=== PATIENT | male | born 1955 | race American Indian/Alaskan Native ===

== ENCOUNTER 2018-06-28 18:38 | Emergency (ER) | payer MEDICARE ==
[2018-06-28] MEDS ORDERED: CATAPRES PO ONE (18:47)
--- NOTE | 2018-06-28 18:49 | Emergency Department Report ---
Blank Doc - Documentation Documentation: This is a 63-year-old male that presents with chest pain with shortness of prema athe. This initial assessment/diagnostic orders/clinical plan/treatment(s) is/are subject to change based on patient's health status, clinical progression and re- assessment by fellow clinical providers in the ED. Further treatment and workup at subsequent clinical providers discretion. Patient/guardians urged not to elope from the ED as their condition may be serious if not clinically assessed and managed. Initial orders include: 1- Patient sent to MAIN ED for further evaluation and treatment 2- EKG 3- Labs 4- CXR 5- Catapress
[2018-06-28 19:35] LABS: Basophils # (Auto) 0.1 K/mm3 (0.0-0.1); Basophils % (Auto) 1.1 % (0.0-1.8); Eosinophils # (Auto) 0.4 K/mm3 (0.0-0.4); Eosinophils % (Auto) 4.4 % (0.0-4.3); Hematocrit 44.3 % (35.5-45.6); Hemoglobin 15.1 gm/dl (11.8-15.2); Lymphocytes # (Auto) 1.5 K/mm3 (1.2-5.4); Lymphocytes % (Auto) 18.9 % (13.4-35.0); Mean Corpuscular HGB Conc 34 % (32-34); Mean Corpuscular Volume 88 fl (84-94); Monocytes # (Auto) 0.8 K/mm3 (0.0-0.8); Monocytes % (Auto) 9.7 % (0.0-7.3); Platelet Count 313 K/mm3 (140-440); Red Blood Count 5.01 M/mm3 (3.65-5.03); Red Cell Distribution Width 15.2 % (13.2-15.2)
[2018-06-28 19:50] LABS: INR 0.95 (0.87-1.13)
[2018-06-28 19:51] LABS: Partial Thromboplastin Time 37.8 Sec. (24.2-36.6)
[2018-06-28 19:57] LABS: BUN/Creatinine Ratio 11; Blood Urea Nitrogen 13 mg/dL (9-20); Calcium 8.6 mg/dL (8.4-10.2); Hemolysis Index 9
[2018-06-28] MEDS ORDERED: TESSALON PERLES PO ONE (20:18)
[2018-06-28] MEDS ORDERED: DUONEB *Not for PRN Use IH ONE (20:18)
[2018-06-28] MEDS ORDERED: DELTASONE PO ONE (20:18)
[2018-06-28] MEDS ORDERED: ZITHROMAX PO ONE (20:18)
--- NOTE | 2018-06-28 21:07 | Emergency Department Report ---
- General Chief Complaint: Dyspnea/Respdistress Stated Complaint: SOB Time Seen by Provider: 06/28/18 18:45 Source: patient Mode of arrival: Ambulatory Limitations: No Limitations - History of Present Illness Initial Comments: 63-year-old male with a past medical history reflux presents to Hospital complaining of cough and URI symptoms 1 week. Cough is nonproductive. Mild subjective fever reported. Positive shortness of breath and intermittent wheezing reported. Patient denies history of asthma or COPD and stopped smoking 2 months ago. Presents with extremely elevated blood pressure but denies a personal history of hypertension. He has not seen a primary care doctor in many years. He denies nausea, vomiting, diaphoresis, calf tenderness, recent travel, edema, history of PE/DVT. He complains of pain to this in his chest with coughing episodes. - Related Data Previous Rx's Medication Instructions Recorded Last Taken Type Albuterol Sulfate [Ventolin HFA] 2 puff IH Q4H PRN #1 hfa.aer.ad 06/28/18 Unknown Rx Amlodipine Besylate [Norvasc] 10 mg PO DAILY #30 tablet 06/28/18 Unknown Rx Azithromycin [Zithromax TAB] 250 mg PO QDAY #4 tablet 06/28/18 Unknown Rx Benzonatate [Tessalon Perles] 100 mg PO Q8HR PRN #20 capsule 06/28/18 Unknown Rx Ibuprofen [Motrin] 800 mg PO Q8HR PRN #30 tablet 06/28/18 Unknown Rx Inhaler, Assist Devices [Space 1 each MC PRN #1 spacer 06/28/18 Unknown Rx Chamber Plus] Omeprazole 40 mg PO DAILY #30 capsule. 06/28/18 Unknown Rx traMADol [Ultram 50 MG tab] 50 mg PO Q6HR PRN #20 tablet 06/28/18 Unknown Rx Allergies Allergy/AdvReac Type Severity Reaction Status Date / Time No Known Allergies Allergy Unverified 06/28/18 18:39 ED Review of Systems ROS: Stated complaint: SOB Other details as noted in HPI Comment: All other systems reviewed and negative ED Past Medical Hx - Past Medical History Previous Medical History?: Yes Hx GERD: Yes - Social History Smoking Status: Unknown if ever smoked Substance Use Type: None - Medications Home Medications: Home Medications Medication Instructions Recorded Confirmed Last Taken Type Albuterol Sulfate [Ventolin HFA] 2 puff IH Q4H PRN #1 hfa.aer.ad 06/28/18 Unknown Rx Amlodipine Besylate [Norvasc] 10 mg PO DAILY #30 tablet 06/28/18 Unknown Rx Azithromycin [Zithromax TAB] 250 mg PO QDAY #4 tablet 06/28/18 Unknown Rx Benzonatate [Tessalon Perles] 100 mg PO Q8HR PRN #20 capsule 06/28/18 Unknown Rx Ibuprofen [Motrin] 800 mg PO Q8HR PRN #30 tablet 06/28/18 Unknown Rx Inhaler, Assist Devices [Space 1 each MC PRN #1 spacer 06/28/18 Unknown Rx Chamber Plus] Omeprazole 40 mg PO DAILY #30 capsule.dr 06/28/18 Unknown Rx traMADol [Ultram 50 MG tab] 50 mg PO Q6HR PRN #20 tablet 06/28/18 Unknown Rx ED Physical Exam - General Limitations: No Limitations - Other Other exam information: General: No limitations, patient is alert in no acute distress Head exam: Atraumatic, normocephalic Eyes exam: Normal appearance, pupils equal reactive to light, extraocular movements intact ENT: Moist mucous membrane, normal oropharynx Neck exam: Normal inspection, full range of motion, no meningismus nontender Respiratory exam: Clear to auscultation bilateral, no wheezes, rales, crackles, cough triggered with deep inspiration Cardiovascular: Normal rate and rhythm, normal heart sounds, anterior chest wall tenderness Abdomen: Soft, nondistended, and nontender, with normal bowel sounds, no rebound, or guarding Extremity: Full range of motion normal inspection no deformity, no calf tenderness or edema Back: Normal Inspection, full range of motion, no tenderness Neurologic: Alert, oriented x3, cranial nerves intact, no motor or sensory deficit Psychiatric: normal affect, normal mood Skin: Warm, dry, intact ED Course Vital Signs 06/28/18 06/28/18 06/28/18 18:45 18:52 19:26 Temperature 97.7 F Pulse Rate 104 H 104 H Pulse Rate [ Bilateral Bases ] Respiratory 18 Rate Respiratory Rate [Bilateral Bases] Blood Pressure 215/127 215/127 O2 Sat by Pulse 96 99 Oximetry 06/28/18 06/28/18 06/28/18 19:30 19:45 19:48 Temperature Pulse Rate 93 H Pulse Rate [ Bilateral Bases ] Respiratory 17 20 Rate Respiratory Rate [Bilateral Bases] Blood Pressure 146/90 145/88 O2 Sat by Pulse 99 98 97 Oximetry 06/28/18 06/28/18 06/28/18 20:01 20:15 20:31 Temperature Pulse Rate 96 H 92 H 86 Pulse Rate [ Bilateral Bases ] Respiratory 17 17 13 Rate Respiratory Rate [Bilateral Bases] Blood Pressure 132/87 123/85 O2 Sat by Pulse 99 100 100 Oximetry 06/28/18 06/28/18 06/28/18 20:32 20:45 21:00 Temperature Pulse Rate 88 89 Pulse Rate [ 88 Bilateral Bases ] Respiratory 16 16 Rate Respiratory 18 Rate [Bilateral Bases] Blood Pressure O2 Sat by Pulse 100 100 Oximetry ED Medical Decision Making - Lab Data Result diagrams: 06/28/18 19:06/28/18 19:01 Lab Results 06/28/18 06/28/18 06/28/18 Range/Units 19:01 19:01 19:01 WBC 7.9 (4.5-11.0) K/mm3 RBC 5.01 (3.65-5.03) M/mm3 Hgb 15.1 (11.8-15.2) gm/dl Hct 44.3 (35.5-45.6) % MCV 88 (84-94) fl MCH 30 (28-32) pg MCHC 34 (32-34) % RDW 15.2 (13.2-15.2) % Plt Count 313 (140-440) K/mm3 Lymph % (Auto) 18.9 (13.4-35.0) % Payne % (Auto) 9.7 H (0.0-7.3) % Eos % (Auto) 4.4 H (0.0-4.3) % Baso % (Auto) 1.1 (0.0-1.8) % Lymph # 1.5 (1.2-5.4) K/mm3 Payne # 0.8 (0.0-0.8) K/mm3 Eos # 0.4 (0.0-0.4) K/mm3 Baso # 0.1 (0.0-0.1) K/mm3 Seg Neutrophils % 65.9 (40.0-70.0) % Seg Neutrophils # 5.2 (1.8-7.7) K/mm3 PT 13.2 (12.2-14.9) Sec. INR 0.95 (0.87-1.13) APTT 37.8 H (24.2-36.6) Sec. D-Dimer < 135.00 (0-234) ng/mlDDU Sodium 138 (137-145) mmol/L Potassium 4.2 (3.6-5.0) mmol/L Chloride 101.4 (98-107) mmol/L Carbon Dioxide 25 (22-30) mmol/L Anion Gap 16 mmol/L BUN 13 (9-20) mg/dL Creatinine 1.2 (0.8-1.5) mg/dL Estimated GFR > 60 ml/min BUN/Creatinine Ratio 11 % Glucose 128 H (75-100) mg/dL Calcium 8.6 (8.4-10.2) mg/dL Troponin T < 0.010 (0.00-0.029) ng/mL 06/28/18 Range/Units 21:14 WBC (4.5-11.0) K/mm3 RBC (3.65-5.03) M/mm3 Hgb (11.8-15.2) gm/dl Hct (35.5-45.6) % MCV (84-94) fl MCH (28-32) pg MCHC (32-34) % RDW (13.2-15.2) % Plt Count (140-440) K/mm3 Lymph % (Auto) (13.4-35.0) % Payne % (Auto) (0.0-7.3) % Eos % (Auto) (0.0-4.3) % Baso % (Auto) (0.0-1.8) % Lymph # (1.2-5.4) K/mm3 Payne # (0.0-0.8) K/mm3 Eos # (0.0-0.4) K/mm3 Baso # (0.0-0.1) K/mm3 Seg Neutrophils % (40.0-70.0) % Seg Neutrophils # (1.8-7.7) K/mm3 PT (12.2-14.9) Sec. INR (0.87-1.13) APTT (24.2-36.6) Sec. D-Dimer (0-234) ng/mlDDU Sodium (137-145) mmol/L Potassium (3.6-5.0) mmol/L Chloride (98-107) mmol/L Carbon Dioxide (22-30) mmol/L Anion Gap mmol/L BUN (9-20) mg/dL Creatinine (0.8-1.5) mg/dL Estimated GFR ml/min BUN/Creatinine Ratio % Glucose (75-100) mg/dL Calcium (8.4-10.2) mg/dL Troponin T < 0.010 (0.00-0.029) ng/mL - EKG Data -: EKG Interpreted by Me ([id number]) EKG shows normal: sinus rhythm, axis (qrs 46), QRS complexes (qrsd 130), ST-T waves (no stemi) Rate: tachycardia (102) - EKG Data When compared to previous EKG there are: previous EKG unavailable - Radiology Data Radiology results: report reviewed (cxr: naf) - Medical Decision Making Patient exhibited symptoms of URI/bronchitis symptoms with intermittent wheezing. X-ray and labs and labs unremarkable. Patient felt better with ED treatment. Will be discharged home with appropriate treatment - Differential Diagnosis bronchitis, pneumonia, [place], PE, atypical chest pain Critical Care Time: No Critical care attestation.: If time is entered above; I have spent that time in minutes in the direct care of this critically ill patient, excluding procedure time. ED Disposition Clinical Impression: Hypertension, Acute bronchitis Disposition: DC-01 TO HOME OR SELFCARE Is pt being admited?: No Does the pt Need Aspirin: No Condition: Stable Instructions: Acute Bronchitis (ED), Hypertension (ED) Additional Instructions: Take the medication as prescribed. Follow up with your doctor or the clinic/doctor provided. Return if symptoms worsen as indicated by your discharge instructions Prescriptions: Ibuprofen [Motrin] 800 mg PO Q8HR PRN #30 tablet PRN Reason: Pain, Moderate (4-6) Amlodipine Besylate [Norvasc] 10 mg PO DAILY #30 tablet Omeprazole 40 mg PO DAILY #30 capsule. Inhaler, Assist Devices [Space Chamber Plus] 1 each MC PRN #1 spacer Benzonatate [Tessalon Perles] 100 mg PO Q8HR PRN #20 capsule PRN Reason: Cough traMADol [Ultram 50 MG tab] 50 mg PO Q6HR PRN #20 tablet PRN Reason: Pain Albuterol Sulfate [Ventolin HFA] 2 puff IH Q4H PRN #1 hfa.aer.ad PRN Reason: Shortness Of Breath Azithromycin [Zithromax TAB] 250 mg PO QDAY #4 tablet Referrals: PRIMARY CAREMD [Primary Care Provider] - 3-5 Days [facility] [Provider Group] - 3-5 Days DONNA MORRIS MD [Staff Physician] - 3-5 Days Time of Disposition: 22:11
--- NOTE | 2018-06-28 21:15 | XRay Report ---
PROCEDURE: XR CHEST ROUTINE 2V HISTORY: Chest Pain FINDINGS: Frontal and lateral views of the chest were acquired. The heart is normal in size. The lungs appear m ildly hyperinflated but clear. The pulmonary vasculature is within normal limits. IMPRESSION: Mild hyperinflation. Otherwise, no active disease in the chest This document is electronically signed by Deo Foss MD., June 28 2018 09:13:04 PM ET
[2018-06-28 22:45] VITALS: BP 137/82
== END 2018-06-28 22:44 | disposition home or self-care (01) ==
LOC: ED 18:38
DX: J20.9 Acute bronchitis, unspecified (principal); I10 Essential (primary) hypertension; K21.9 Gastro-esophageal reflux disease without esophagitis
CPT/HCPCS: 36415; 71046; 80048; 84484; 85025; 85379; 85610; 85730; 93005; 93010; 94640; 99285; J7512